=== PATIENT | male | born 1950 | race Caucasian/White ===

== ENCOUNTER → 2018-01-15 | Outpatient (CLI) | payer MEDICARE, MEDICAID ==
[~2018-01-15] MED LIST: CLIN300C8 PO; CLON0.1T PO; METF500T PO; METO50TA82 PO
== END | disposition home or self-care (01) ==
LOC: WOUND 10:49
PROVIDERS: ATTEND Internal Medicine
DX: E11.622 Type 2 diabetes mellitus with other skin ulcer (principal); L97.811 Non-pressure chronic ulcer of other part of right lower leg limited to breakdown of skin; L97.821 Non-pressure chronic ulcer of other part of left lower leg limited to breakdown of skin; L84 Corns and callosities; E44.0 Moderate protein-calorie malnutrition; E21.0 Primary hyperparathyroidism; E05.90 Thyrotoxicosis, unspecified without thyrotoxic crisis or storm; E11.65 Type 2 diabetes mellitus with hyperglycemia; F17.210 Nicotine dependence, cigarettes, uncomplicated; Z79.84 Long term (current) use of oral hypoglycemic drugs; Z79.899 Other long term (current) drug therapy
CPT/HCPCS: 97597; G0463; 97598; WOU0463

== ENCOUNTER 2018-02-25 00:11 | Emergency (ER) | payer MEDICARE, MEDICAID ==
[~2018-02-25] VITALS: Ht 177.8 cm; Wt 97.7 kg
[2018-02-25 00:12] VITALS: BP 173/78
[2018-02-25] MEDS ORDERED: hydrOXyzine 50MG TABLET ONE (00:57)
== END 2018-02-25 01:24 | disposition home or self-care (01) ==
LOC: ED 01:18
DX: T14.8XXA Other injury of unspecified body region, initial encounter (principal); E11.9 Type 2 diabetes mellitus without complications; W57.XXXA Bitten or stung by nonvenomous insect and other nonvenomous arthropods, initial encounter; Y93.89 Activity, other specified; Y92.89 Other specified places as the place of occurrence of the external cause; Y99.8 Other external cause status
CPT/HCPCS: 99283; Q0177

== ENCOUNTER 2018-08-03 21:43 | Emergency (ER) | payer MEDICARE, MEDICAID ==
[~2018-08-03] VITALS: Ht 177.8 cm; Wt 93.0 kg
[2018-08-03] MEDS ORDERED: LIDOCAINE 1%, 10ML INFIL ONE (22:00)
[2018-08-03] MEDS ORDERED: LIDOCAINE-MPF 2%, 2ML ONE (22:13)
[2018-08-03] MEDS ORDERED: DIPH,PERTUSS(ACELL),TET VAC/PF 0.5 ML IM-VACC ONE ×2 (22:21→22:30)
[2018-08-04 00:30] VITALS: BP 130/64
== END 2018-08-04 00:32 | disposition home or self-care (01) ==
LOC: ED 22:23
DX: S06.310A Contusion and laceration of right cerebrum without loss of consciousness, initial encounter (principal); S01.81XA Laceration without foreign body of other part of head, initial encounter; W01.0XXA Fall on same level from slipping, tripping and stumbling without subsequent striking against object, initial encounter; Y93.89 Activity, other specified; Y92.480 Sidewalk as the place of occurrence of the external cause; Y99.8 Other external cause status
CPT/HCPCS: 12052; 70450; 72125; 99284; J3490

== ENCOUNTER 2019-03-16 19:22 | Emergency (ER) | payer MEDICARE, MEDICAID ==
[~2019-03-16] VITALS: Ht 177.8 cm; Wt 103.0 kg
[~2019-03-16 19:22] MED LIST changes: -CLON0.1T PO; +CLON0.1T22 PO
[2019-03-16] MEDS ORDERED: LIDOCAINE 1%, 10ML INFIL ONE (19:30)
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
--- NOTE | 2019-03-16 19:50 | NUR ---
TO CT SCAN
[2019-03-16] MEDS ORDERED: ACETAMINOPHEN 500 MG TABLET ONE (20:12)
[2019-03-16] MEDS ORDERED: LIDOCAINE-MPF 1%, 5ML ONE ×3 (20:19→21:07)
--- NOTE | 2019-03-16 20:24 | NUR ---
NO NEURO CHANGES NOTED RIGHT FOREHEAD SWELLING INCREASED/ICE APPLIED IRRIGATION/SUTURING SUPPLIES TO BEDSIDE PATIENT GIVEN PO FLUID-TOLERATED WITH NO DIFFICULTY. MEDICATED PER EMAR FOR SHEPARD RATED AT 4/10
[2019-03-16] MEDS ORDERED: ACETAMINOPHEN 500 MG TABLET PO ONE (20:30)
--- NOTE | 2019-03-16 21:09 | NUR ---
WOUND IRRIGATED W/ 300ML NS AND THEN RECOVERED W/ STERILE DRESSING. PROVIDER MADE AWARE PATIENT UPDATED ON POC VSS ON ROOM AIR
--- NOTE | 2019-03-16 22:07 | NUR ---
REPORT TO TORITO CARNES
--- NOTE | 2019-03-16 22:07 | NUR ---
FOREHEAD WOUND SUTURED BY PROVIDER W/OUT COMPLICATION
--- NOTE | 2019-03-16 22:36 | NUR ---
ot desating while asleep. pt arouses easily. able to sat 92% on ra while awake.
--- NOTE | 2019-03-16 23:21 | NUR ---
pt forehead sutured. pt mostly sleeping. pt sating 84% on ra. pt o2 sat imporves with minimal arousal. vss, will continue to monitor.
[2019-03-17 00:10] VITALS: BP 126/65
--- NOTE | 2019-03-17 00:52 | NUR ---
pt resting calmly in bed. pt o2 sat holding steady at 91%. pt repositioned in bed for comfort. will continue to monitor. pt MTF
--- NOTE | 2019-03-17 03:16 | NUR ---
ATTEMPTED TO AMBULATE PT IN ROAD TEST. PT ABLE TO STAND ON HIS OWN, HOWEVER AMBULATE VERY UNSTEADY. PT BACK IN BED. WILL CONTINUE TO MONITOR.
== END 2019-03-17 05:10 | disposition home or self-care (01) ==
LOC: ED 21:30
DX: S01.81XA Laceration without foreign body of other part of head, initial encounter (principal); E11.9 Type 2 diabetes mellitus without complications; R51 Headache; W19.XXXA Unspecified fall, initial encounter; Y93.89 Activity, other specified; Y92.410 Unspecified street and highway as the place of occurrence of the external cause; Y99.8 Other external cause status
CPT/HCPCS: 13132; 70450; 72125; 99285; J3490

== ENCOUNTER 2020-01-07 15:18 | Emergency (ER) | payer MEDICARE, MEDICAID ==
[~2020-01-07] VITALS: Ht 180.3 cm; Wt 83.9 kg
[~2020-01-07 15:18] MED LIST changes: +AMOX-291 PO; +DOXY100T PO; +NICO-486 TD; +PERM60CR17 TP
[2020-01-07] MEDS ORDERED: SODIUM CHLORIDE FLUSH 10ML SYR IVF ONE (16:30)
[2020-01-07] MEDS ORDERED: SODIUM CHLORIDE 0.9% 1,000ML IVBOLUS ONE (16:30)
[2020-01-07] MEDS ORDERED: ONDANSETRON 2MG/ML, 2ML IVPush ONE (16:30)
[2020-01-07 17:24] LABS: BASOPHILS # (AUTO) 0.01 x10^3/uL (0-0.1); BASOPHILS % (AUTO) 0 % (0-1); EOSINOPHILS # (AUTO) 0.04 x10^3/uL (0-0.4); EOSINOPHILS % (AUTO) 0 % (1-7); LYMPHOCYTES # (AUTO) 1.05 x10^3/uL (1-3.4); LYMPHOCYTES % (AUTO) 9 % (22-44); MD NO; MEAN CORPUSCULAR HEMOGLOBIN 28.9 pg (27.5-34.5); MEAN CORPUSCULAR HGB CONC 33.1 g/dL (33.2-36.2); MEAN CORPUSCULAR VOLUME 87.3 fL (81-97); MEAN PLATELET VOLUME 8.6 fL (7.4-10.4); MONOCYTES # (AUTO) 0.82 x10^3/uL (0.2-0.8); MONOCYTES % (AUTO) 7 % (2-9); NEUTROPHILS # (AUTO) 9.63 x10^3/uL (1.8-6.8); NEUTROPHILS % (AUTO) 83 % (42-75); PLATELET COUNT 232 x10^3/uL (130-400); RED BLOOD COUNT 4.68 x10^6/uL (4.38-5.82)
[2020-01-07 17:34] LABS: ALANINE AMINOTRANSFERASE 29 U/L (12-78); ANION GAP 9 mmol/L (5-15); CALCIUM 11.2 mg/dL (8.5-10.1); CHLORIDE 100 mmol/L (98-107)
[2020-01-07 17:36] LABS: ALKALINE PHOSPHATASE 129 U/L (45-117); BILIRUBIN,TOTAL 0.5 mg/dL (0.2-1.0); TOTAL PROTEIN 8.9 g/dL (6.4-8.2)
--- NOTE | 2020-01-07 18:16 | NUR ---
PT WALKED BACK FROM LOBBY TO ROOM AT THIS TIME. STEADY UPON AMBULATION.
--- NOTE | 2020-01-07 19:00 | NUR ---
IV ATTEMPTED BY EDTA. PATIENT GIVEN OPTION TO TAKE PO ZOFRAN WHICH PATIENT OKAY WITH. ERP AWARE.
[2020-01-07] MEDS ORDERED: ONDANSETRON ODT 4 MG ONE (19:09)
[2020-01-07] MEDS ORDERED: ONDANSETRON ODT 4 MG PO ONE (19:30)
--- NOTE | 2020-01-07 19:51 | NUR ---
PATIENT FEELS BETTER AFTER ZOFRAN OTD. PT GIVEN D/C WITH RX. DISCUSSED D/C INSTRUCTIONS. VERBALIZED UNDERSTANDING.
[2020-01-07 19:52] VITALS: BP 158/77
== END 2020-01-07 19:54 | disposition home or self-care (01) ==
LOC: ED 19:45
DX: R11.2 Nausea with vomiting, unspecified (principal); R42 Dizziness and giddiness; F11.23 Opioid dependence with withdrawal; F17.200 Nicotine dependence, unspecified, uncomplicated; Z85.818 Personal history of malignant neoplasm of other sites of lip, oral cavity, and pharynx
CPT/HCPCS: 36415; 80053; 83605; 85025; 87040; 93005; 99284; Q0162

== ENCOUNTER 2020-03-20 19:04 | Emergency (ER) | payer MEDICARE, MEDICAID ==
[~2020-03-20] VITALS: Ht 180.3 cm; Wt 79.0 kg
[2020-03-20 19:43] LABS: BASOPHILS # (AUTO) 0.02 x10^3/uL (0-0.1); BASOPHILS % (AUTO) 0 % (0-1); EOSINOPHILS % (AUTO) 1 % (1-7); LYMPHOCYTES # (AUTO) 1.19 x10^3/uL (1-3.4); LYMPHOCYTES % (AUTO) 15 % (22-44); MD NO; MEAN CORPUSCULAR HEMOGLOBIN 28.5 pg (27.5-34.5); MEAN CORPUSCULAR HGB CONC 32.5 g/dL (33.2-36.2); MEAN CORPUSCULAR VOLUME 87.9 fL (81-97); MEAN PLATELET VOLUME 8.8 fL (7.4-10.4); MONOCYTES # (AUTO) 0.61 x10^3/uL (0.2-0.8); MONOCYTES % (AUTO) 8 % (2-9); NEUTROPHILS # (AUTO) 6.27 x10^3/uL (1.8-6.8); NEUTROPHILS % (AUTO) 77 % (42-75); PLATELET COUNT 282 x10^3/uL (130-400); RED BLOOD COUNT 4.47 x10^6/uL (4.38-5.82); RED CELL DISTRIBUTION WIDTH 16.1 % (9.4-14.8)
--- NOTE | 2020-03-20 19:46 | NUR ---
PT HARD TO UNDERSTAND VERBALY DUE TO HX OF THROAT CANCER.
[2020-03-20 19:55] LABS: ALANINE AMINOTRANSFERASE 24 U/L (12-78); ALBUMIN 3.8 g/dL (3.4-5.0); ANION GAP 11 mmol/L (5-15); CALCIUM 10.9 mg/dL (8.5-10.1); CHLORIDE 104 mmol/L (98-107); CREATININE 1.29 mg/dL (0.7-1.3)
[2020-03-20 19:57] LABS: ALKALINE PHOSPHATASE 113 U/L (45-117); BILIRUBIN,TOTAL 0.6 mg/dL (0.2-1.0); TOTAL PROTEIN 8.1 g/dL (6.4-8.2)
[2020-03-20 20:50] VITALS: BP 131/78
== END 2020-03-20 20:54 | disposition home or self-care (01) ==
LOC: ED 20:03
DX: R10.84 Generalized abdominal pain (principal); J02.9 Acute pharyngitis, unspecified; R50.9 Fever, unspecified; Z85.818 Personal history of malignant neoplasm of other sites of lip, oral cavity, and pharynx
CPT/HCPCS: 36415; 74022; 80053; 83690; 85025; 99284

== ENCOUNTER 2020-03-29 21:32 | Emergency (ER) | payer MEDICARE, MEDICAID ==
[~2020-03-29] VITALS: Ht 177.8 cm; Wt 86.4 kg
--- NOTE | 2020-03-29 22:12 | NUR ---
DREW AT [facility] CONTACTED FOR PT INFORMATION. THEY WERE CONCERNED ABOUT PT BASELINE MEDICAL REQUIREMENTS, WOULD LIKE HIM TO BE CLEARED AND THEY WILL ACCEPT HIM BACK TONIGHT. REPORT TO TRICE STARK.
--- NOTE | 2020-03-29 22:15 | NUR ---
REPORT RECEIVED AND CARE ASSUMED. PT ATTEMPTING UA WITH URINAL AT BEDSIDE.
[2020-03-29 22:58] LABS: BASOPHILS # (AUTO) 0.03 x10^3/uL (0-0.1); BASOPHILS % (AUTO) 0 % (0-1); EOSINOPHILS # (AUTO) 0.14 x10^3/uL (0-0.4); EOSINOPHILS % (AUTO) 2 % (1-7); LYMPHOCYTES % (AUTO) 19 % (22-44); MD NO; MEAN CORPUSCULAR HEMOGLOBIN 28.8 pg (27.5-34.5); MEAN CORPUSCULAR HGB CONC 32.2 g/dL (33.2-36.2); MEAN CORPUSCULAR VOLUME 89.4 fL (81-97); MEAN PLATELET VOLUME 8.9 fL (7.4-10.4); MONOCYTES # (AUTO) 0.66 x10^3/uL (0.2-0.8); MONOCYTES % (AUTO) 10 % (2-9); NEUTROPHILS # (AUTO) 4.46 x10^3/uL (1.8-6.8); NEUTROPHILS % (AUTO) 69 % (42-75); PLATELET COUNT 221 x10^3/uL (130-400); RED BLOOD COUNT 4.49 x10^6/uL (4.38-5.82); RED CELL DISTRIBUTION WIDTH 16.2 % (9.4-14.8)
--- NOTE | 2020-03-29 23:00 | NUR ---
PT GIVEN PUDDING AND JUICE PER REQUEST. CALL LIGHT IN REACH.
[2020-03-29 23:09] LABS: ALBUMIN 3.9 g/dL (3.4-5.0); ANION GAP 8 mmol/L (5-15); CALCIUM 11.1 mg/dL (8.5-10.1); CHLORIDE 105 mmol/L (98-107); CREATININE 1.28 mg/dL (0.7-1.3)
[2020-03-29 23:10] LABS: SALICYLATE LEVEL < 1.7 mg/dL (2.8-20.0)
[2020-03-29 23:10] LABS: AMPHETAMINE SCREEN, URINE Negative (Negative); BARBITURATE SCREEN, URINE Negative (Negative); BENZODIAZEPINE SCREEN, URINE Negative (Negative); CANNABINOID SCREEN, URINE Negative (Negative); COCAINE SCREEN, URINE Negative (Negative); METHADONE SCREEN, URINE Negative (Negative); OPIATE SCREEN, URINE Negative (Negative)
--- NOTE | 2020-03-30 | NUR ---
Attempted to call [facility] to ensure that they will be accepting pt. Awaiting call back from admitting RN there. Pt updated to POC. Pt dozing intermittently. Call light in reach.
--- NOTE | 2020-03-30 00:54 | NUR ---
Second call placed to [facility]. Leonardo states he needs to look into and see if they are able to accept him back. Awaiting call back from Leonardo. contact center manager to be notified.
--- NOTE | 2020-03-30 01:01 | NUR ---
Pt sleeping with resp even and unlabored. Easily wakes with verbal stimilus. Pt updated to POC--awaiting acceptence to [facility].
--- NOTE | 2020-03-30 01:45 | NUR ---
Call received from [facility]. States they are unable to accept pt s/t no accepting md. Will discuss POC with ERP and pt.
[2020-03-30] MEDS ORDERED: NEOSPORIN OINT. PKT 1 PACKET ONE (02:51)
--- NOTE | 2020-03-30 03:05 | NUR ---
No placement for pt tonight for detox. Pt shows no s/s of withdrawal at this time. VSS. No tremors. Discussed with pt that he can go back to the jail tonight and attempt [facility] in AM since he has been medically cleared. Pt refusing community resources. Pt states he would just like a taxi to the jail. Mild redness noted to Jtube site. Discussed with ERP and bacitracin to be placed with new gauze dressing. No further orders received. Dressing placed per ERP. Attempted to give extra supplies. Pt states he does not want any supplies. Pt ambulates with steady gait--requesting a w/c out to lobby.
[2020-03-30 03:11] VITALS: BP 114/63
== END 2020-03-30 03:13 | disposition home or self-care (01) ==
LOC: ED 03-30 00:11
DX: F10.220 Alcohol dependence with intoxication, uncomplicated (principal); R11.0 Nausea; F17.200 Nicotine dependence, unspecified, uncomplicated; Z00.00 Encounter for general adult medical examination without abnormal findings; Z85.21 Personal history of malignant neoplasm of larynx; Y90.0 Blood alcohol level of less than 20 mg/100 ml
CPT/HCPCS: 36415; 80048; 80307; 82040; 85025; 99285

== ENCOUNTER 2020-04-16 19:10 | Emergency (ER) | payer MEDICARE, MEDICAID ==
[~2020-04-16] VITALS: Ht 180.3 cm; Wt 75.2 kg
[2020-04-16 19:12] VITALS: BP 96/68
[2020-04-16] MEDS ORDERED: ACETAMINOPHEN 500 MG TABLET PO ONE (19:30)
--- NOTE | 2020-04-16 19:56 | NUR ---
WOUND DRESSED PER MD ORDERS
== END 2020-04-16 20:19 | disposition home or self-care (01) ==
LOC: ED 20:07
DX: T85.528A Displacement of other gastrointestinal prosthetic devices, implants and grafts, initial encounter (principal); F17.200 Nicotine dependence, unspecified, uncomplicated
CPT/HCPCS: 99281

== ENCOUNTER 2020-04-20 13:24 | Emergency (ER) | payer MEDICARE, MEDICAID ==
[~2020-04-20] VITALS: Ht 180.3 cm; Wt 65.0 kg
--- NOTE | 2020-04-20 13:51 | NUR ---
PHARMACY PICKING TECH: PT TO ROOM VIA WHEELCHAIR FROM [facility]
--- NOTE | 2020-04-20 14:42 | NUR ---
break RN note: pt resting on gurney, awake, alert, resps even and unlabored. family at bedside, conversing with pt. awaiting MD assessment and orders at this time.
[2020-04-20 15:18] LABS: BASOPHILS # (AUTO) 0.03 x10^3/uL (0-0.1); BASOPHILS % (AUTO) 0 % (0-1); EOSINOPHILS # (AUTO) 0.03 x10^3/uL (0-0.4); EOSINOPHILS % (AUTO) 0 % (1-7); LYMPHOCYTES # (AUTO) 0.96 x10^3/uL (1-3.4); LYMPHOCYTES % (AUTO) 13 % (22-44); MD NO; MEAN CORPUSCULAR HEMOGLOBIN 29.6 pg (27.5-34.5); MEAN CORPUSCULAR HGB CONC 32.7 g/dL (33.2-36.2); MEAN CORPUSCULAR VOLUME 90.5 fL (81-97); MEAN PLATELET VOLUME 8.9 fL (7.4-10.4); MONOCYTES % (AUTO) 7 % (2-9); NEUTROPHILS # (AUTO) 6.07 x10^3/uL (1.8-6.8); NEUTROPHILS % (AUTO) 80 % (42-75); PLATELET COUNT 234 x10^3/uL (130-400); RED BLOOD COUNT 4.18 x10^6/uL (4.38-5.82); RED CELL DISTRIBUTION WIDTH 15.8 % (9.4-14.8)
[2020-04-20 15:28] LABS: ANION GAP 8 mmol/L (5-15); CALCIUM 10.3 mg/dL (8.5-10.1); CHLORIDE 104 mmol/L (98-107); CREATININE 1.62 mg/dL (0.7-1.3)
--- NOTE | 2020-04-20 15:32 | NUR ---
SW TO SEE
[2020-04-20] MEDS ORDERED: SODIUM CHLORIDE 0.9% 1,000ML IVBOLUS ONE (16:30)
--- NOTE | 2020-04-20 16:32 | NUR ---
PT AND SISTER FOUND IN [place] ATTEMPTING TO LEAVE, EDUCATED MD JUST ORDERED IVF AND UA, PT REFUSING STATING HE WOULD JUST LIKE TO GO AND SISTER STATING SHE "HAS A LONG DRIVE". AGREES TO DC PT. PT WHEELED TO DISCHARGE DESK WITH SISTER, PT RECIEVED INFO FROM FOR PLACEMENT.
[2020-04-20 16:33] VITALS: BP 138/79
== END 2020-04-20 16:35 | disposition home or self-care (01) ==
LOC: ED 14:07
DX: R53.81 Other malaise (principal); E86.0 Dehydration; R53.1 Weakness; R05 Cough; F17.200 Nicotine dependence, unspecified, uncomplicated
CPT/HCPCS: 36415; 80048; 83735; 85025; 99283

== ENCOUNTER 2020-05-24 21:46 | Emergency (ER) | payer MEDICARE, MEDICAID ==
[~2020-05-24] VITALS: Ht 177.8 cm; Wt 80.0 kg
[2020-05-24 22:02] VITALS: BP 94/54
[2020-05-24] MEDS ORDERED: SODIUM CHLORIDE 0.9% 1,000ML IVBOLUS ONE (22:30)
[2020-05-24] MEDS ORDERED: FOLIC ACID 1 MG TABLET PO ONE (22:30)
[2020-05-24] MEDS ORDERED: THIAMINE 100MG TABLET PO ONE (22:30)
[2020-05-24] MEDS ORDERED: SODIUM CHLORIDE FLUSH 10ML SYR IVF ONE (22:30)
[2020-05-24 22:50] LABS: BASOPHILS # (AUTO) 0.01 x10^3/uL (0-0.1); BASOPHILS % (AUTO) 0 % (0-1); EOSINOPHILS # (AUTO) 0.12 x10^3/uL (0-0.4); EOSINOPHILS % (AUTO) 1 % (1-7); LYMPHOCYTES # (AUTO) 0.99 x10^3/uL (1-3.4); LYMPHOCYTES % (AUTO) 11 % (22-44); MD NO; MEAN CORPUSCULAR HEMOGLOBIN 29.2 pg (27.5-34.5); MEAN CORPUSCULAR HGB CONC 32.1 g/dL (33.2-36.2); MEAN CORPUSCULAR VOLUME 90.9 fL (81-97); MEAN PLATELET VOLUME 9.5 fL (7.4-10.4); MONOCYTES # (AUTO) 0.56 x10^3/uL (0.2-0.8); MONOCYTES % (AUTO) 6 % (2-9); NEUTROPHILS # (AUTO) 7.62 x10^3/uL (1.8-6.8); NEUTROPHILS % (AUTO) 82 % (42-75); PLATELET COUNT 214 x10^3/uL (130-400); RED BLOOD COUNT 4.41 x10^6/uL (4.38-5.82); RED CELL DISTRIBUTION WIDTH 13.9 % (9.4-14.8)
[2020-05-24 23:04] LABS: ALBUMIN 3.5 g/dL (3.4-5.0); ANION GAP 9 mmol/L (5-15); CALCIUM 11.2 mg/dL (8.5-10.1); CHLORIDE 103 mmol/L (98-107)
[2020-05-24 23:11] LABS: ALANINE AMINOTRANSFERASE 25 U/L (12-78); ALKALINE PHOSPHATASE 98 U/L (45-117); CREATININE 1.52 mg/dL (0.7-1.3); TOTAL PROTEIN 7.5 g/dL (6.4-8.2); TROPONIN I < 0.015 ng/mL (0.000-0.045)
== END 2020-05-25 00:25 | disposition home or self-care (01) ==
LOC: ED 22:00
DX: R55 Syncope and collapse (principal); R10.13 Epigastric pain; G89.29 Other chronic pain; E86.0 Dehydration; J98.11 Atelectasis; R07.9 Chest pain, unspecified; E11.9 Type 2 diabetes mellitus without complications
CPT/HCPCS: 36415; 71045; 80053; 80307; 83690; 84484; 85025; 93005; 99285

== ENCOUNTER 2020-05-27 07:16 | Emergency (ER) | payer MEDICARE, MEDICAID ==
[~2020-05-27] VITALS: Ht 180.3 cm; Wt 67.0 kg
[2020-05-27 07:19] VITALS: BP 97/70
[2020-05-27] MEDS ORDERED: LIDOCAINE-MPF 1%, 5ML ONE (07:56)
[2020-05-27] MEDS ORDERED: OMNIPAQUE 350 MG/ML, 50 ML BOTTLE ONE (08:14)
== END 2020-05-27 08:54 | disposition home or self-care (01) ==
LOC: ED 07:45
DX: K94.23 Gastrostomy malfunction (principal); E11.9 Type 2 diabetes mellitus without complications; Z85.818 Personal history of malignant neoplasm of other sites of lip, oral cavity, and pharynx
CPT/HCPCS: 43762; 74018; 99284; C1729; Q9967; 99285

== ENCOUNTER 2020-06-13 01:57 | Emergency (ER) | payer MEDICARE, MEDICAID ==
[2020-06-13 02:01] VITALS: BP 93/57
== END 2020-06-13 02:48 | disposition home or self-care (01) ==
LOC: ED 02:24
DX: L73.9 Follicular disorder, unspecified (principal); L73.1 Pseudofolliculitis barbae; E11.9 Type 2 diabetes mellitus without complications; F17.200 Nicotine dependence, unspecified, uncomplicated
CPT/HCPCS: 99283

== ENCOUNTER 2020-06-26 11:34 | Emergency (ER) | payer MEDICARE, MEDICAID ==
[2020-06-26 11:42] VITALS: BP 124/77
[2020-06-26] MEDS ORDERED: MECLIZINE CHEWABLE 25 MG TAB PO ONE (12:00)
[2020-06-26 12:42] LABS: BASOPHILS # (AUTO) 0.01 x10^3/uL (0-0.1); BASOPHILS % (AUTO) 0 % (0-1); EOSINOPHILS % (AUTO) 6 % (1-7); LYMPHOCYTES # (AUTO) 0.56 x10^3/uL (1-3.4); LYMPHOCYTES % (AUTO) 8 % (22-44); MD NO; MEAN CORPUSCULAR HEMOGLOBIN 29.8 pg (27.5-34.5); MEAN CORPUSCULAR HGB CONC 32.7 g/dL (33.2-36.2); MEAN CORPUSCULAR VOLUME 91.2 fL (81-97); MEAN PLATELET VOLUME 8.9 fL (7.4-10.4); MONOCYTES # (AUTO) 0.38 x10^3/uL (0.2-0.8); MONOCYTES % (AUTO) 5 % (2-9); NEUTROPHILS # (AUTO) 5.76 x10^3/uL (1.8-6.8); NEUTROPHILS % (AUTO) 81 % (42-75); PLATELET COUNT 195 x10^3/uL (130-400); RED BLOOD COUNT 4.55 x10^6/uL (4.38-5.82); RED CELL DISTRIBUTION WIDTH 15.6 % (9.4-14.8)
[2020-06-26 12:55] LABS: ALANINE AMINOTRANSFERASE 22 U/L (12-78); ALBUMIN 3.2 g/dL (3.4-5.0); ANION GAP 6 mmol/L (5-15); CALCIUM 9.8 mg/dL (8.5-10.1); CHLORIDE 108 mmol/L (98-107); CREATININE 1.33 mg/dL (0.7-1.3)
[2020-06-26 12:59] LABS: ALKALINE PHOSPHATASE 86 U/L (45-117); BILIRUBIN,TOTAL 0.8 mg/dL (0.2-1.0); TOTAL PROTEIN 6.7 g/dL (6.4-8.2)
[2020-06-26] MEDS ORDERED: MECLIZINE CHEWABLE 25 MG TAB ONE (13:46)
--- NOTE | 2020-06-26 13:50 | NUR ---
PT ROOMED AFTER [facility], MEDICATED PER JAN. XRAY AT BEDSIDE.
--- NOTE | 2020-06-26 14:30 | NUR ---
PROVIDED CLEAN CLOTHES FOR PT.
== END 2020-06-26 14:48 | disposition home or self-care (01) ==
LOC: ED 14:40
DX: R42 Dizziness and giddiness (principal); R94.31 Abnormal electrocardiogram [ECG] [EKG]; E11.9 Type 2 diabetes mellitus without complications; F17.200 Nicotine dependence, unspecified, uncomplicated; Z85.818 Personal history of malignant neoplasm of other sites of lip, oral cavity, and pharynx
CPT/HCPCS: 36415; 71045; 80053; 83880; 85025; 93005; 99285

== ENCOUNTER 2020-11-19 18:34 | Emergency (ER) | payer MEDICARE, MEDICAID ==
[~2020-11-19] VITALS: Ht 177.8 cm; Wt 69.1 kg
[~2020-11-19 18:34] MED LIST changes: +ASCO500T9 PO; +CHOL500045 PO; -CLIN300C8 PO; +CLIN300C9 PO; +THIA100T67 PO; +ZINC220C7 PO
[2020-11-19 18:39] VITALS: BP 90/57
== END 2020-11-19 20:18 | disposition home or self-care (01) ==
LOC: ED 19:45
DX: Z00.00 Encounter for general adult medical examination without abnormal findings (principal); I10 Essential (primary) hypertension; E11.9 Type 2 diabetes mellitus without complications; F17.210 Nicotine dependence, cigarettes, uncomplicated; Z85.21 Personal history of malignant neoplasm of larynx; Z85.89 Personal history of malignant neoplasm of other organs and systems; Z72.9 Problem related to lifestyle, unspecified
CPT/HCPCS: 99281; 99406

== ENCOUNTER 2020-11-25 13:10 | Emergency (ER) | payer MEDICARE, MEDICAID ==
[~2020-11-25] VITALS: Ht 180.3 cm; Wt 62.0 kg
[2020-11-25] MEDS ORDERED: SODIUM CHLORIDE 0.9% 1,000ML IVBOLUS ONE (13:30)
[2020-11-25 13:33] LABS: BASOPHILS % (AUTO) 1 % (0-1); EOSINOPHILS % (AUTO) 1 % (1-7); LYMPHOCYTES % (AUTO) 11 % (22-44); MD NO; MEAN CORPUSCULAR HEMOGLOBIN 29.7 pg (27.5-34.5); MEAN CORPUSCULAR HGB CONC 32.7 g/dL (33.2-36.2); MEAN PLATELET VOLUME 7.8 fL (7.4-10.4); MONOCYTES % (AUTO) 9 % (2-9); NEUTROPHILS % (AUTO) 78 % (42-75); PLATELET COUNT 279 x10^3/uL (130-400); RED BLOOD COUNT 3.83 x10^6/uL (4.38-5.82); RED CELL DISTRIBUTION WIDTH 15.1 % (9.4-14.8)
[2020-11-25 13:44] LABS: ALBUMIN 3.5 g/dL (3.4-5.0); ANION GAP 4 mmol/L (5-15); CALCIUM 10.4 mg/dL (8.5-10.1); CHLORIDE 104 mmol/L (98-107)
[2020-11-25 13:48] LABS: ALANINE AMINOTRANSFERASE 23 U/L (12-78); ALKALINE PHOSPHATASE 103 U/L (45-117); BILIRUBIN,TOTAL 0.8 mg/dL (0.2-1.0); CREATININE 1.06 mg/dL (0.7-1.3); TOTAL PROTEIN 7.6 g/dL (6.4-8.2)
--- NOTE | 2020-11-25 14:32 | NUR ---
Pt provided urinal and UA sample sent, though not ordered at this time. Order for foster care social worker consult placed as per MD request.
--- NOTE | 2020-11-25 15:19 | NUR ---
Spoke with MD about CXR results and labs. Okay to feed pt if he is hungry. family worker called about consult order and she states she will read over the notes of his last few visits and then come down to see him as requested. Pt provided juice and crackers at this time.
--- NOTE | 2020-11-25 16:19 | NUR ---
Pt aware of pending d/c. IVF still need to complete infusion prior to d/c. IV site flushed and pt reminded to keep arm straight so that bolus can infuse as ordered. Pt states he will need a taxi voucher for [facility].
[2020-11-25 17:19] VITALS: BP 133/69
== END 2020-11-25 17:25 | disposition home or self-care (01) ==
LOC: ED 13:41
DX: J18.1 Lobar pneumonia, unspecified organism (principal); R53.1 Weakness; R11.0 Nausea; R94.31 Abnormal electrocardiogram [ECG] [EKG]; E11.9 Type 2 diabetes mellitus without complications; R10.9 Unspecified abdominal pain; I10 Essential (primary) hypertension; F17.210 Nicotine dependence, cigarettes, uncomplicated; Z85.9 Personal history of malignant neoplasm, unspecified
CPT/HCPCS: 36415; 71045; 80053; 85025; 93005; 96360; 96361; 99285; 99406; J7030

== ENCOUNTER 2021-03-13 15:50 | Emergency (ER) | payer MEDICARE, MEDICAID ==
[~2021-03-13] VITALS: Ht 175.3 cm; Wt 62.0 kg
--- NOTE | 2021-03-13 16:02 | NUR ---
PT BIB [facility] FOR C/O GROIN PAIN. PT REPORTS HE HAS A HERNIA. PT ALSO IS COVERED IN BUGS. PT TAKEN TO THE [facility] ROOM AND GIVEN A SHOWER. BELONGINGS IN BAGS.
--- NOTE | 2021-03-13 16:34 | NUR ---
PT SEEN BY DR BERNARD
--- NOTE | 2021-03-13 16:52 | NUR ---
PATIENT EATING IN ROOM, OKAYED BY DR BERNARD. VS STABLE. NO ACUTE DISTRESS NOTED. CALL LIGHT IN PLACE. WILL CONTINUE TO MONITOR.
--- NOTE | 2021-03-13 17:56 | NUR ---
BREAK RN: ASSUMED CARE FOR DISCHARGE ONLY, PT ALERT AND ORIENTED X 4, SHOES GIVEN, ALL BELONGINGS WITH PATIENT, TAXI CAB GIVEN, GAIT SLOW AND STEADY Patient/Caregiver given discharge instructions and they have confirmed that they understand the instructions. Patient ambulatory with steady gait.
[2021-03-13 17:57] VITALS: BP 134/54
== END 2021-03-13 18:04 | disposition home or self-care (01) ==
LOC: MERGE 15:50 → EDBD 15:50 → ED 17:58
DX: B86 Scabies (principal); K40.90 Unilateral inguinal hernia, without obstruction or gangrene, not specified as recurrent; F17.200 Nicotine dependence, unspecified, uncomplicated
CPT/HCPCS: 99283

== ENCOUNTER 2021-03-21 23:31 | Emergency (ER) | payer MEDICARE, MEDICAID ==
[~2021-03-21] VITALS: Ht 177.8 cm; Wt 62.0 kg
[2021-03-21 23:40] VITALS: BP 120/54
--- NOTE | 2021-03-22 01:06 | NUR ---
PT SHOUTING AT STAFF, NOT WANTING TO LEAVE, PT ESCORTED OUT WITH SECURITY
== END 2021-03-22 01:12 | disposition home or self-care (01) ==
LOC: ED 03-22
DX: K40.90 Unilateral inguinal hernia, without obstruction or gangrene, not specified as recurrent (principal); Z72.9 Problem related to lifestyle, unspecified; I10 Essential (primary) hypertension; E11.9 Type 2 diabetes mellitus without complications; F17.200 Nicotine dependence, unspecified, uncomplicated; Z85.818 Personal history of malignant neoplasm of other sites of lip, oral cavity, and pharynx
CPT/HCPCS: 99283